=== PATIENT | female | born 1950 | race Caucasian/White ===

== ENCOUNTER 2023-10-16 19:10 | Emergency (ER) | payer MEDICARE, SELFPAY ==
[2023-10-16] VITALS (9 sets, daily range): BP systolic 107–125; BP diastolic 59–73; PULSE 63–68; BMI 23.5
[2023-10-16 19:43] LABS: % Basophils 0.5 % (0-2); % Eosinophils 2.2 % (0-6); % Immature Granulocytes 0.4 % (0-0.5); % Lymphocytes 35.7 % (20.5-51.1); % Monocytes 9.2 % (1.7-9.3); Absolute Eosinophils 0.2 10^3/uL (0-0.7); Absolute Lymphocytes 2.8 10^3/uL (1.2-3.4); Absolute Monocytes 0.7 10^3/uL (0.1-0.6); Hematocrit 40.1 % (37.0-47.0); Hemoglobin 13.9 g/dL (12.0-16.0); Mean Corp Hgb Conc. 34.7 g/dL (33.0-37.0); Mean Corpuscular Hgb 29.9 pg (27.0-31.0); Mean Corpuscular Volume 86.2 fL (81.0-99.0); Mean Platelet Volume 9.5 fL (7.4-10.4); Nucleated Red Blood Cells % 0 %; Platelet Count 281 10^3/uL (130-400); Red Blood Cell Count 4.65 10^6/uL (4.20-5.40); Red Cell Dist. Width 12.6 % (11.5-14.5); White Blood Cell Count 7.8 10^3/uL (4.8-10.8)
--- NOTE | 2023-10-16 19:59 | ED.GENMED ---
History of Present Illness
General
Chief Complaint: Cardiac Symptoms
Source: patient
Exam Limitations: none
Time Seen by Provider: 10/16/23 19:33
Travel History
Have you had any contact with someone who has COVID-19?: No
Do you have any symptoms of coronavirus? Fever > 100 degrees, chills, cough, shortness of breath, sore throat, loss of taste or smell, muscle aches, or headache?: No
History of Present Illness
History of Present Illness:
This is a 73 year old female that comes in with c/o feeling shaky. States that today she took a nap and when she went to get up her legs where shaking. States that when she went to stand up she felt weak so she got back into bed. States that she
felt like she had some bilateral jaw discomfort and she could pin point some chest discomfort which she has had before. States that she was nauseated. Denies any fever, SOB, abd pain, vomiting, diarrhea, headache, dizziness, urinary burning.
Past History
Past History
ED Past Medical History: GERD (Hiatal hernia) and Other (Mitral valve regurg, )
ED Past Surgical History: Orthopedic (Knee surgery, Bunionectomy) and Other (Breast implants)
Social History
Tobacco: Non-smoker
Alcohol: Occasional
Drug: None
Personal: (Has a significant other)
Living: alone
Employment: Retired
Family History
Family History: Other (Mitral valve prolapse); Negative CAD or Sudden
Review of Systems
Review of Systems
All Other Systems: ROS reviewed and negative except as documented in HPI and ROS
Constitutional: Reports chills; Denies fever
EENT: Reports no symptoms
Respiratory: Reports no symptoms; Denies cough or trouble breathing
Cardiac: Reports chest pain
ABD/GI: Reports nausea; Denies abdominal pain, vomiting or diarrhea
: Denies dysuria, frequency or urgency
Musculoskeletal: Reports no symptoms
Skin: Reports no symptoms
Neurological: Reports no symptoms; Denies dizzy or headache
Psychiatric: Reports no symptoms
Phy Exam
General Physical Exam
General Presentation: well appearing and no apparent distress
General age: appears stated age
General Skin: warm and dry
General Habitus: elderly
General Mental: alert
General Hydration: appears well hydrated
ENT Exam
ENT Exam: TM's normal, pharynx normal and neck supple
Eye Exam
Eye Exam: EOMI
Cardiovascular Exam
Cardiovascular Exam: regular rate/rhythm, no edema, no murmur and normal peripheral pulses
Pulmonary Exam
Pulmonary Exam: lungs clear, no respiratory distress, no rales, chest non tender, no crackles, no rhonchi, no wheezing and no cough
Gastrointestinal Exam
Gastrointestinal Exam: normal bowel sounds, non tender, soft, no organomegaly, no pulsatile mass and non distended
Musculoskeletal Exam
Musculoskeletal Exam: full ROM and no edema
Skin Exam
Skin Exam: normal color, warm/dry, no rash and no petechia
Psychiatric Exam
Psychiatric Exam: normal mood/affect
Course
Orders/Labs/Results
Orders:
Orders
10/16/23 19:17
ECG [Electrocardiogram (*1)] Urgent
Reason for Study: Chest Pain
EKG- Treatment ONCE
10/16/23 19:24
Cardiac Monitoring- Treatment ONCE
IV Insert/Care/Rem.- Treatment PRN
O2 Therapy [RESP] Urgent
Titrate/Wean O2 to maintain O2 sat greater than (%): 93
Special Instructions: TO MAINTAIN CONTINUOUS O2 SATS >/= 93%
Pulse Ox/cont/shift [RESP] Urgent
Quantity: 1
Special Instructions: continuous pulse ox
10/16/23 19:26
Complete Blood Count/With Diff Urgent
10/16/23 19:58
Orthostatic VS- Treatment ONCE
0.9% Sodium Chloride 1000 ml [Nss] 1,000 ml IV BOLUS
10/16/23 20:10
Troponin I Urgent
10/16/23 20:52
Comprehensive Metabolic Panel Urgent
10/16/23 21:06
Urinalysis Reflex To Culture Urgent
Date Specimen was Collected: 10/16/23
Time Specimen was Collected: 20:55
10/16/23 23:08
Troponin I Urgent
10/16/23 23:26
EKG [Electrocardiogram (*1)] Urgent
Reason for Study: Chest Pain
10/16/23 23:27
EKG- Treatment ONCE
Abnormal Lab Results
10/16/23 10/16/23 10/16/23
19:26 20:52 21:06
Absolute Monos (auto) 0.7 H 10^3/uL
(0.1-0.6)
Sodium 131 L mmol/L
(135-145)
Chloride 97 L mmol/L
(98-107)
BUN 18 H mg/dl
(7-17)
Glucose 102 H mg/dl
(70-99)
Total Protein 6.0 L g/dl
(6.3-8.2)
Urine Ketones Trace A
(Negative)
10/16/23 19:26
10/16/23 20:52
Sodium slightly low. dehydration. Glucose nonfasting. Total protein slightly low. Urine negative. for infection. Both Troponin <0.012
Vital Signs
Initial and Last Documented VS:
Initial Vital Signs
Temp Pulse Resp BP Pulse Ox
98.4 F 66 20 122/73 97
10/16/23 19:13 10/16/23 19:13 10/16/23 19:13 10/16/23 19:13 10/16/23 19:13
Last Documented Vital Signs
Temp Pulse Resp BP Pulse Ox
98.4 F 66 20 122/73 98
10/16/23 19:13 10/16/23 19:13 10/16/23 19:13 10/16/23 19:13 10/16/23 19:40
MDM/Problems Addressed
Differential Diagnosis Includes:
UTI, Viral syndrome. Dehdyration
MDM/Problems Addressed:
This is a 73 year old female that comes in with c/o shaking and feeling weak after a nap. States that she went to get up after her nap and her legs were shaking so she climbed back into bed.
Will check labs, Urine, give IV Fluids.
Back into see patient. Explained that her blood work shows that her sodium is very slightly low and she was a little dehydrated. Patient staes that after she got the liter of fluid she felt better. Will recheck Troponin and if negative will
discharge patient home.
back into see patient. Explained that the second Troponin was also normal. Will discharge patient home. Patient to increase her water intake. Follow up with the family doctor. Return with any concerns.
Repeat ECG: Rate 61, NSR Normal axis. Normal QRS, negative for ischemia Checked by Dr Dean
Chronic conditions affecting care:
NA
Acute Exacerbation and/or Progression of Chronic Illness:
NA
*Pulse Oximetry
Patient hypoxic: no
*EKG
Interpreted by ED Provider?: Yes
Heart Rate: 62
Rate: normal
Rhythm: sinus
[place]: normal axis
Interval: normal interval
QRS Pattern: normal QRS
Ischemia: no ischemia
*Administration Clerk Interpretation
Rate: normal
Heart Rate: 68
Rhythm: sinus
*Critical Care Note
Total Time (30-74mins, 75-104mins- exclusive of procedures): Not Applicable
ED Attending Note
-
Portions of this chart may have been created with voice recognition software.� Occasional wrong word or��sound alike� substitutions may have occurred due to the inherent limitations of voice recognition software.
Discharge Plan
Departure
Patient Disposition: Home (Routine Discharge)
Date of Disposition: 10/17/23
Time of Disposition: 00:34
Patient with high blood pressure during this ER visit?: No
Condition: Good
Covid-19: Not Applicable
Discharge Problem:
Weakness generalized, Dehydration
Instructions: Dehydration, Adult (DC), Generalized Weakness (DC)
Prescriptions:
No Action
sucralfate [Carafate] 100 mg/mL suspension
10 ml PO QID Qty: 420 0RF
pantoprazole [Protonix] 40 mg tablet,delayed release (DR/EC)
40 mg PO DAILY Qty: 14 0RF
Referrals:
Barby Vivar DO [Family Provider] - Follow up in 2-3 days
Activity Restrictions/Additional Instructions:
As discussed, your blood work shows slight Dehydration. Your Urine is negative for infection and both Troponin's and ECG are normal. Please increase your water intake to 8-8oz glasses daily. Follow up with the family doctor in the next 2-3 days for
recheck. IF YOU HAVE ANY OTHER CONCERNS PLEASE RETURN TO THE EMERGENCY ROOM.
Interventions
Interventions:
*Risk Screen - Suicide Last Done: 10/16/23 19:13
*General Assessment Last Done: 10/16/23 19:13
*Neglect/Abuse Screening Last Done: 10/16/23 19:13
ED- Fall Risk Assessment Last Done: 10/16/23 19:13
*ED COVID-19 Vaccine History Last Done: 10/16/23 19:13
ED- Pulmonary Assessment Last Done: 10/16/23 19:40
ED- Cardiac Assessment Last Done: 10/16/23 19:40
[2023-10-16] MEDS: NSS 1000 IV (20:07)
[2023-10-16 20:39] LABS: Troponin I < 0.012 ng/ml
[2023-10-16 21:14] LABS: Urine Albumin Negative (Neg - Trace); Urine Bilirubin Negative (Negative); Urine Character Clear (Clear); Urine Color Yellow; Urine Glucose Negative (Negative); Urine Ketone Trace (Negative); Urine Leukocyte Negative (Negative); Urine Nitrite Negative (Negative); Urine Occult Blood Negative (Negative); Urine Specific Gravity 1.015 (<1.030); Urine Urobilinogen Negative (Neg - 1+)
[2023-10-16 21:20] LABS: ALT (SGPT) 20 U/L (0-35); AST (SGOT) 26 U/L (14-36); Albumin 3.7 g/dl (3.5-5.0); Alkaline Phosphatase 90 U/L (38-126); Blood Urea Nitrogen 18 mg/dl (7-17); Calcium 8.6 mg/dl (8.4-10.2); Carbon Dioxide 27 mmol/L (22-30); Chloride 97 mmol/L (98-107); Estimated Creatinine Clearance 81 ml/min; Glucose 102 mg/dl (70-99); Potassium 3.7 mmol/L (3.5-5.1); Sodium 131 mmol/L (135-145); Total Bilirubin 0.4 mg/dl (0.2-1.3); eGFR > 60.00
[2023-10-16 23:50] LABS: Troponin I < 0.012 ng/ml
== END 2023-10-17 00:45 | disposition home or self-care (01) ==
LOC: EMR 19:10
PROVIDERS: Clinical Nurse Specialist Family Health; Emergency Medicine; EMERGENCY PHYSICIAN Emergency Medicine; FAMILY PHYSICIAN Family Medicine
DX: R53.1 Weakness (principal); E86.0 Dehydration
CPT/HCPCS: 99284; 96360; 80053; 81003; 84484; 85025; 93005

== ENCOUNTER 2025-01-21 10:05 | Outpatient (RCR) | payer MEDICARE, SELFPAY | END 2025-01-21 23:59 | disposition home or self-care (01) | LOC: RPT 10:05 | PROVIDERS: ATTENDING PHYSICIAN Obstetrics & Gynecology; FAMILY PHYSICIAN Family Medicine | DX: N39.3 Stress incontinence (female) (male) (principal); Z73.6 Limitation of activities due to disability | CPT/HCPCS: 97112; 97161; 97530 ==

== ENCOUNTER 2025-02-12 13:24 | Outpatient (RCR) | payer MEDICARE, SELFPAY | END 2025-02-12 23:59 | disposition home or self-care (01) | LOC: RPT 13:24 | PROVIDERS: ATTENDING PHYSICIAN Obstetrics & Gynecology; FAMILY PHYSICIAN Family Medicine | DX: N39.3 Stress incontinence (female) (male) (principal); Z73.6 Limitation of activities due to disability | CPT/HCPCS: 97110; 97112 ==